=== PATIENT | male | born 1970 ===

== ENCOUNTER 2025-02-28 15:04 | Emergency (ER) | payer BC ==
[~2025-02-28] VITALS: Ht 170.2 cm; Wt 85.5 kg
[2025-02-28 15:09] VITALS: BP 118/68; PULSE 78; RESP 18; O2SAT 98
[2025-02-28] MEDS ORDERED: CHLO25CA10 PO (16:02)
[2025-02-28 16:23] VITALS: TEMP 98.8
== END 2025-02-28 16:27 | disposition home or self-care (01) ==
LOC: ER 15:05
DX: F10.139 Alcohol abuse with withdrawal, unspecified (principal); Z88.1 Allergy status to other antibiotic agents; Y90.9 Presence of alcohol in blood, level not specified
CPT/HCPCS: 99283